=== PATIENT | female | born 1955 | race Caucasian/White ===

== ENCOUNTER 2018-12-02 12:50 | Day surgery (SDC) | payer BC ==
[~2018-12-02] VITALS: Ht 162.6 cm; Wt 56.7 kg
[~2018-12-02 12:50] MED LIST: BUPROPION XL300 MG PO; IBUPROFEN200 MG PO; KLONOPIN0.5 MG PO; PROZAC40 MG PO
[2018-12-02 13:30] LABS: HEMOGLOBIN 13.9 g/dL (12-16); MCH 29.5 pg (26.0-34.0); MCHC 33.9 g/dL (31.0-37.0); MEAN PLATELET VOLUME 9.2 fL (7.4-10.4); RBC 4.71 10x6/uL (4.00-5.40); RDW 12.4 % (11.5-14.5); WBC 5.7 10x3/uL (4.8-10.8)
[2018-12-02 13:42] VITALS: BP 142/86; Ht 162.6 cm; Wt 56.7 kg
[2018-12-02] MEDS ORDERED: HYDROCODONE-A1 UDTA2 PO (18:06)
[2018-12-02] MEDS ORDERED: BAYER CHEWABLE81 MG PO (18:07)
[2018-12-02] MEDS ORDERED: ZOFRAN ODT4 MG/UDTAB PO (18:18)
--- NOTE | 2018-12-02 19:30 | NUR ---
1845 PT ARRIVED TO ROOM. UPPER LIP CUT WITH SCANT AMT OF BLEEDING ANESTHESIA IS AWARE. ICE GLOVE PROVIDED.
--- NOTE | 2018-12-02 19:33 | NUR ---
1835 IV REMOVED. PRESSURE HELD
--- NOTE | 2018-12-02 20:04 | NUR ---
1944 IV REMOVED AND PRESSURE HELD, INSTRUCTIONS GIVEN AND PT ASSISTED UP WITH WALKER TO USE RESTROOM. VOIDED ADEQUATE AMT. TO CAR IN W/C
--- NOTE | 2018-12-03 07:18 | OP ---
PATIENT NAME: MARK ROBERTS MEDICAL RECORD: [id number] :57 LOCATION:[facility] ADMISSION DATE: SURGEON: GIL MORROW DO DATE OF OPERATION: 12/02/2018 PROCEDURE PERFORMED: Left distal fibula open reduction and internal fixation. PREOPERATIVE DIAGNOSIS: Left distal fibula displaced closed fracture. POSTOPERATIVE DIAGNOSIS: Left distal fibula displaced closed fracture. INDICATIONS: Ms. Roberts is a 62-year-old female who sustained a left distal tibial fracture this weekend. She was seen in my clinic. It was displaced more than 3 mm and I informed her she would likely need fixation as it will continue to spread and get worse and she was okay with that. I told her the risks of infection, bleeding, damage to nerves and vessels, superficial peroneal nerve, failure of fixation, malunion, nonunion, need for further surgery, blood clots, and even . She is okay with that risk and was aware of the nonweightbearing status afterwards and she signed the consent. SURGEON: Gil Morrow DO DESCRIPTION OF PROCEDURE: The patient was taken to the operative suite, after given a block per anesthesia, laid in the supine position, given general anesthetic and LMA was placed. She was given 1 gram of Ancef preoperatively. Left lower extremity was prepped and draped in sterile fashion. A timeout was performed and everyone was in agreement with the correct side, site, patient and procedure. The incision was then marked out and then the left lower extremity was exsanguinated with an Esmarch and tourniquet was inflated to 350 mmHg for 23 minutes. Incision then began over the fibula. Careful dissection was made down to the fibula at the fracture site. The fracture site was then cleaned out and reduced and an Arthrex plate was placed on the fibula and pinned into place. Once it was in good position on AP and lateral, we put a screw in the shaft and then distally 4 locking screws and 3 more screws in the shaft. Once I had good fixation and with good reduction in AP and lateral, I stressed the syndesmosis with a mortise view and stress view and there was no widening medially. Therefore I did not put TightRope. The tourniquet was then let down at that time. Bleeding was minimal. The site was irrigated and closed with 2-0 Vicryl in an inverted interrupted fashion and ZipLine was placed on the leg over the incision and then dressed with Adaptic, 4 x 4s, ABD on the heel and over the anterior ankle and then wrapped with cast padding. A 4 x 30 splint was placed posterior in the leg and secured in place with 6-inch Sreedhar wrap. She was awakened and taken to the recovery in stable condition. BLOOD LOSS: Minimal. COMPLICATIONS: None. TRANSINT:[id number] Voice Confirmation ID: [id number] DOCUMENT ID: [id number] OPERATIVE REPORT [id number] MARK ROBERTS,GIL Silva DO at 0718 CC: [id number] DICTATION DATE: 12/02/181813 INTERNAL GRINDER: 12/02/182326 [facility] 12/02/18 [facility] [address] [place] [address]
== END 2018-12-02 20:00 | disposition home or self-care (01) ==
LOC: D.OPS 12:50 → D.PAN 15:00 → D.OPS 15:00 → D.PAN 16:15 → D.OPS 20:00
PROVIDERS: Anesthesiology; ATTEND Orthopaedic Surgery
DX: S82.402A Unspecified fracture of shaft of left fibula, initial encounter for closed fracture (principal); X58.XXXA Exposure to other specified factors, initial encounter